=== PATIENT | male | born 2000 | race Caucasian/White ===

== ENCOUNTER 2018-05-12 16:50 | Emergency (ER) | payer BC ==
[~2018-05-12] VITALS: Ht 177.8 cm; Wt 77.3 kg
[2018-05-12 16:54] VITALS: TEMP 98.6
[2018-05-12 18:17] LABS: ALBUMIN 4.1 gm/dL (3.5-5.0); BILIRUBIN,TOTAL 3.3 mg/dL (0.0-1.0); CALCIUM 9.4 mg/dL (8.4-10.2); CREATININE, serum 0.97 mg/dL (0.66-1.25); POTASSIUM 4.3 mmol/L (3.4-5.0); TOTAL PROTEIN 7.6 gm/dL (6.4-8.2)
[2018-05-12 18:22] LABS: HEMATOCRIT 44.1 % (36.0-47.0); HEMOGLOBIN 15.3 g/dl (12.5-16.1); MEAN CELL VOLUME 85 fl (80.0-95.0); MEAN CORPUSCULAR HEMOGLOBIN 30 pg (26.0-32.0); MEAN CORPUSCULAR HGB CONC 35 g/dl (33.0-37.0); MEAN PLATELET VOLUME 10.6 fl (7.4-10.4); PLATELET COUNT 177 K/mm3 (130-400); RED BLOOD COUNT 5.18 M/mm3 (4.20-5.60); REDCELL DISTRIBUTION WIDTH-CV 12.7 % (11.5-14.5)
[2018-05-12 19:08] VITALS: BP 119/69; PULSE 78
[2018-05-12] MEDS ORDERED: ZOFRAN ODT4 MG PO (19:40)
[2018-05-12 19:45] LABS: BAND 8 % (0-10); LYMPHOCYTE 79 % (20.0-51.0); NEUTROPHILS 10 % (42.0-75.2); PLATELET ESTIMATE NORMAL (NORMAL)
== END 2018-05-12 19:49 | disposition home or self-care (01) ==
LOC: COL.ER 16:50
PROVIDERS: Nurse Practitioner
DX: B27.90 Infectious mononucleosis, unspecified without complication (principal)
CPT/HCPCS: J1885; J2405; J7030

== ENCOUNTER 2018-05-15 00:59 | Emergency (ER) | payer BC ==
[~2018-05-15] VITALS: Ht 177.8 cm; Wt 77.3 kg
[~2018-05-15 00:59] MED LIST: ZOFRAN ODT4 MG PO
[2018-05-15 01:01] VITALS: TEMP 98.6
[2018-05-15 01:27] LABS: HEMATOCRIT 41.8 % (36.0-47.0); HEMOGLOBIN 14.4 g/dl (12.5-16.1); MEAN CELL VOLUME 86 fl (80.0-95.0); MEAN CORPUSCULAR HEMOGLOBIN 30 pg (26.0-32.0); MEAN CORPUSCULAR HGB CONC 34 g/dl (33.0-37.0); PLATELET COUNT 158 K/mm3 (130-400); RED BLOOD COUNT 4.85 M/mm3 (4.20-5.60); REDCELL DISTRIBUTION WIDTH-CV 13.2 % (11.5-14.5)
[2018-05-15 01:46] LABS: ALBUMIN 3.9 gm/dL (3.5-5.0); BILIRUBIN,TOTAL 2.9 mg/dL (0.0-1.0); CALCIUM 9.3 mg/dL (8.4-10.2); CREATININE, serum 1.09 mg/dL (0.66-1.25); TOTAL PROTEIN 7.5 gm/dL (6.4-8.2)
[2018-05-15] MEDS ORDERED: ULTRAM 50MG TAB50 MG PO (02:08)
[2018-05-15 02:18] LABS: PROTHROMBIN TIME 11.7 SECONDS (9.7-12.8)
[2018-05-15 02:22] LABS: LYMPHOCYTE 81 % (20.0-51.0); NEUTROPHILS 18 % (42.0-75.2); PLATELET ESTIMATE NORMAL (NORMAL)
[2018-05-15] MEDS ORDERED: PREDNISONE20 MG PO (02:37)
[2018-05-15 02:48] VITALS: BP 110/74; PULSE 90
[2018-05-15 08:17] LABS: PATHOLOGY DIFF REVIEW OK
== END 2018-05-15 02:50 | disposition home or self-care (01) ==
LOC: COL.ER 00:59
PROVIDERS: Nurse Practitioner
DX: B27.90 Infectious mononucleosis, unspecified without complication (principal)
CPT/HCPCS: J7030; J7512

== ENCOUNTER 2019-08-08 22:13 | Emergency (ER) | payer BC ==
[~2019-08-08] VITALS: Ht 177.8 cm; Wt 75.0 kg
[~2019-08-08 22:13] MED LIST changes: +PREDNISONE20 MG PO; +ULTRAM 50MG TAB50 MG PO
[2019-08-08 22:18] VITALS: TEMP 97.8
[2019-08-08 22:47] LABS: COLLECTION METHOD CLEAN CATCH
[2019-08-08 22:56] LABS: MUCOUS Present /lpf; PH 5 (5-8); SQUAMOUS EPITHELIAL 0-2 /hpf; URINE APPEARANCE Cloudy; URINE BACTERIA None Seen /hpf; URINE BILIRUBIN Negative (NEGATIVE); URINE BLOOD 3+ (NEGATIVE); URINE COLOR Yellow; URINE GLUCOSE Negative (NEGATIVE); URINE KETONE Negative (NEGATIVE); URINE LEUKOCYTE ESTERASE 1+ (NEGATIVE); URINE NITRATE Negative (NEGATIVE); URINE PROTEIN(semi-quant) 1+ (NEGATIVE); URINE RBC >50 /hpf; URINE UROBILINOGEN Negative (NEGATIVE)
[2019-08-08 23:10] LABS: BASO # 0.1 (0.0-0.2); BASO % 0.5 % (0.0-2.0); EOS # 0.1 (0.0-0.7); EOS % 0.6 % (0-4.0); GRAN # 8.1 (1.4-6.5); GRAN % 62.3 % (42.2-75.2); HEMATOCRIT 44.1 % (42.0-52.0); HEMOGLOBIN 15.4 g/dl (13.5-18.0); LYMPH # 3.8 (1.2-3.4); LYMPH % 29.3 % (20.0-51.0); MEAN CELL VOLUME 84 fl (80.0-100.0); MEAN CORPUSCULAR HEMOGLOBIN 29 pg (27.0-31.0); MEAN CORPUSCULAR HGB CONC 35 g/dl (33.0-37.0); MEAN PLATELET VOLUME 10.6 fl (7.4-10.4); MONO # 0.9 (0.1-0.6); PLATELET COUNT 208 K/mm3 (130-400); RED BLOOD COUNT 5.23 M/mm3 (4.20-5.60); REDCELL DISTRIBUTION WIDTH-CV 12.1 % (11.5-14.5)
[2019-08-08 23:21] LABS: ALBUMIN 4.8 gm/dL (3.5-5.0); BILIRUBIN,TOTAL 0.6 mg/dL (0.0-1.0); C-REACTIVE PROTEIN 0.7 mg/dL (0.0-0.9); CALCIUM 9.6 mg/dL (8.4-10.2); CREATININE, serum 1.15 (0.66-1.25); POTASSIUM 3.9 mmol/L (3.4-5.0); TOTAL PROTEIN 7.9 gm/dL (6.4-8.2)
[2019-08-09] MEDS ORDERED: OMNICEF 300MG300 MG PO (02:40)
[2019-08-09] MEDS ORDERED: NORCO 325 MG-51 TAB PO (02:41)
[2019-08-09 02:53] VITALS: BP 116/76; PULSE 88
== END 2019-08-09 02:53 | disposition home or self-care (01) ==
LOC: COL.ER 22:13
PROVIDERS: Physician Assistant
DX: N20.0 Calculus of kidney (principal); Z79.52 Long term (current) use of systemic steroids
CPT/HCPCS: A4216; J0696; J1885; J2270; J2405; J3010; J7030; Q9967

== ENCOUNTER 2019-11-23 18:59 | Emergency (ER) | payer BC ==
[~2019-11-23] VITALS: Ht 177.8 cm; Wt 77.3 kg
[~2019-11-23 18:59] MED LIST changes: +NORCO 325 MG-51 TAB PO; +OMNICEF 300MG300 MG PO
[2019-11-23 19:05] VITALS: TEMP 98.3
[2019-11-23 20:08] LABS: BASO # 0.1 (0.0-0.2); BASO % 0.7 % (0.0-2.0); EOS # 0.1 (0.0-0.7); EOS % 0.7 % (0-4.0); GRAN # 4.3 (1.4-6.5); GRAN % 57.4 % (42.2-75.2); HEMATOCRIT 42.1 % (42.0-52.0); LYMPH # 2.3 (1.2-3.4); LYMPH % 31.2 % (20.0-51.0); MEAN CELL VOLUME 84 fl (80.0-100.0); MEAN CORPUSCULAR HEMOGLOBIN 30 pg (27.0-31.0); MEAN CORPUSCULAR HGB CONC 36 g/dl (33.0-37.0); MEAN PLATELET VOLUME 10.4 fl (7.4-10.4); MONO # 0.7 (0.1-0.6); MONO % 9.6 % (1.7-9.3); PLATELET COUNT 185 K/mm3 (130-400); RED BLOOD COUNT 5.03 M/mm3 (4.20-5.60); REDCELL DISTRIBUTION WIDTH-CV 11.9 % (11.5-14.5)
[2019-11-23 20:26] LABS: ANION GAP 10 mmol/L (7-16); BLOOD UREA NITROGEN 15 mg/dL (9-20); CALCIUM 9.6 mg/dL (8.4-10.2); CARBON DIOXIDE 24 mmol/L (22-30); CHLORIDE 104 mmol/L (98-107); CREATININE, serum 1.09 (0.66-1.25); GLUCOSE 112 mg/dL (74-106); POTASSIUM 3.3 mmol/L (3.4-5.0); SODIUM 138 mmol/L (137-145)
[2019-11-23 20:43] LABS: TROPONIN-I < 0.012 ng/mL (0.000-0.035)
[2019-11-23 20:56] LABS: TSH w REFLEX 0.678 uIU/mL (0.465-4.680)
[2019-11-23] MEDS ORDERED: XANAX 0.5MG0.5 MG PO (21:02)
[2019-11-23] MEDS ORDERED: NAPROXEN 3375 MG/TAB PO (21:08)
[2019-11-23 21:22] VITALS: BP 124/84; PULSE 98
== END 2019-11-23 21:22 | disposition home or self-care (01) ==
LOC: COL.ER 18:59
PROVIDERS: Emergency Medicine
DX: I31.9 Disease of pericardium, unspecified (principal); Z87.448 Personal history of other diseases of urinary system

== ENCOUNTER 2019-11-25 20:48 | Emergency (ER) | payer BC ==
[~2019-11-25 20:48] MED LIST changes: +NAPROXEN 3375 MG/TAB PO; +XANAX 0.5MG0.5 MG PO
[2019-11-25 20:55] VITALS: TEMP 98
[2019-11-25 21:25] LABS: BASO # 0.1 (0.0-0.2); BASO % 0.6 % (0.0-2.0); EOS # 0.1 (0.0-0.7); EOS % 1.1 % (0-4.0); GRAN # 4.7 (1.4-6.5); GRAN % 52.6 % (42.2-75.2); HEMATOCRIT 43.4 % (42.0-52.0); LYMPH # 3.3 (1.2-3.4); LYMPH % 37.6 % (20.0-51.0); MEAN CELL VOLUME 86 fl (80.0-100.0); MEAN CORPUSCULAR HEMOGLOBIN 30 pg (27.0-31.0); MEAN CORPUSCULAR HGB CONC 35 g/dl (33.0-37.0); MEAN PLATELET VOLUME 10.6 fl (7.4-10.4); MONO # 0.7 (0.1-0.6); MONO % 7.8 % (1.7-9.3); PLATELET COUNT 205 K/mm3 (130-400); RED BLOOD COUNT 5.06 M/mm3 (4.20-5.60); REDCELL DISTRIBUTION WIDTH-CV 11.9 % (11.5-14.5)
[2019-11-25 21:32] LABS: INR 0.9 (0.8-3.0); PROTHROMBIN TIME 10.1 SECONDS (9.7-12.8)
[2019-11-25 21:34] LABS: PARTIAL THROMBOPLASTIN TIME 34.7 SECONDS (26.0-37.0)
[2019-11-25 21:38] LABS: ALANINE AMINOTRANSFERASE 22 U/L (4-49); ALBUMIN 4.3 gm/dL (3.5-5.0); ALKALINE PHOSPHATASE 64 U/L (50-136); ANION GAP 9 mmol/L (7-16); AST,SGOT 22 U/L (15-37); BILIRUBIN,TOTAL 0.7 mg/dL (0.0-1.0); BLOOD UREA NITROGEN 18 mg/dL (9-20); CALCIUM 9.4 mg/dL (8.4-10.2); CARBON DIOXIDE 26 mmol/L (22-30); CHLORIDE 105 mmol/L (98-107); CREATININE, serum 1.04 (0.66-1.25); GLUCOSE 104 mg/dL (74-106); POTASSIUM 4.1 mmol/L (3.4-5.0); SODIUM 139 mmol/L (137-145); TOTAL PROTEIN 7.6 gm/dL (6.4-8.2)
[2019-11-25 21:52] LABS: ERYTHROCYTE SEDIMENTATION RATE 1 mm/hr (0-15)
[2019-11-25 22:03] LABS: C-REACTIVE PROTEIN < 0.5 mg/dL (0.0-0.9); TROPONIN-I < 0.012 ng/mL (0.000-0.035)
[2019-11-25 22:34] VITALS: BP 109/75; PULSE 62
== END 2019-11-25 22:34 | disposition home or self-care (01) ==
LOC: COL.ER 20:48
PROVIDERS: Family Medicine
DX: R07.89 Other chest pain (principal)
CPT/HCPCS: J1100; J1885

== ENCOUNTER → 2019-12-24 | Outpatient (CLI) | payer BC | LOC: ZCOL.LAB 16:40 | DX: U07.1 COVID-19 (principal) ==

== ENCOUNTER → 2020-09-01 | Outpatient (CLI) | payer BC | LOC: COL.RAD 09:37 | DX: K76.0 Fatty (change of) liver, not elsewhere classified (principal) ==

== ENCOUNTER → 2020-09-16 | Outpatient (CLI) | payer BC | LOC: COL.RAD 11:23 | DX: K82.8 Other specified diseases of gallbladder (principal) | CPT/HCPCS: A9537; J2805 ==